=== PATIENT | male | born 1940 | race Caucasian/White ===

== ENCOUNTER 2021-02-22 18:19 | Inpatient (IN) | payer MEDICARE, BC ==
[~2021-02-22] VITALS: Ht 152.4 cm; Wt 79.8 kg
--- NOTE | 2021-02-22 19:45 | NUR ---
Medically cleared by ERMD.
--- NOTE | 2021-02-22 20:30 | NUR ---
Transfered to U via gunry by EMT.
[2021-02-22 20:52] VITALS: BP 121/80
[2021-02-22] MEDS ORDERED: BLOOD SUGAR DIAGNOSTIC 1 EACH STRIP VI ONE (22:15)
[2021-02-22] MEDS ORDERED: TEMAZEPAM 7.5 MG CAPSULE PO PRN (22:15)
[2021-02-22] MEDS ORDERED: MAGNESIUM HYDROXIDE 30 ML LIQUID UDC PO PRN (22:15)
[2021-02-22] MEDS ORDERED: MAG HYDROX/AL HYDROX/SIMETH 30 ML LIQUID UDC PO PRN (22:15)
[2021-02-22] MEDS ORDERED: ACETAMINOPHEN 325 MG TABLET PO PRN (22:15)
[2021-02-22] MEDS ORDERED: LOSA1TAB36 PO (22:26)
[2021-02-22] MEDS ORDERED: ROSU20TA2 PO (22:26)
[2021-02-22] MEDS ORDERED: ESCI-9 PO (22:26)
[2021-02-22] MEDS ORDERED: FINA5TAB11 PO (22:26)
[2021-02-22] MEDS ORDERED: ALPR0.5T8 PO (22:26)
[2021-02-22] MEDS ORDERED: DOXA4TAB3 PO (22:26)
[2021-02-22] MEDS ORDERED: LEVO175T2 PO (22:26)
[2021-02-22] MEDS ORDERED: ZOLP5TAB8 PO (22:26)
--- NOTE | 2021-02-22 23:00 | NUR ---
ADMISSION NOTE: 81 YRS OLD MALE WHO LIVES WITH HIS [facility] BY THE AMBULANCE .PT WAS ADMITTED TO [facility] AFTER MEDICALLY CLEARED FROM ER.PT ARRIVED TO THE UNIT VIA GURNEY,ACCOMPANIED BY AMBULANCE STAFFS.PT IS A/O X3,CALM , COOPERATIVE,SOFT SPOKEN AND FORGETFUL @ TIMES.ON 72 HR HOLD FOR DTS BUT DENIED @ THE TIME OF ADMISSION. PT HAS HX.OF HTN,DEPRESSION,BPH,ACUTE PROSTATITIS AND HYPOTHYROIDISM. NO HX.OF FALL.SELF CARE,BRP AND AMBULATORY.DENIES PAIN/SI/HI/A&V H BUT ACCORDING TO THE HOLD,PT STRUGGLES WITH SEVERE DEPRESSION.HE ADVISED HIS THAT HE WANTED TO KILL HIMSELF WITH A GUN HE OWNED. CALLED 911. CALLED TO PROVIDE MORE INFORMATION THEN TALKED TO PT. WILL CONTINUE TO MONITOR VERY CLOSELY FOR S/I.
[2021-02-23 07:30] VITALS: BP 115/63
--- NOTE | 2021-02-23 11:52 | NUR ---
Firearms Report: Senior Customer Service Representative completed and submitted a [employer] firearms report for 5150 grave disability certifications. A copy of report has been placed in patient chart.
--- NOTE | 2021-02-23 12:42 | NUR ---
DAVIDE Initial Discharge Plan: Patient resides at home [address] [place] [address]. Patient's , Romelia Garcia ([phone]) and son Macho Garcia ([phone]) are both involved in the patient's care. Patient would like to return home upon discharge. DAVIDE will continue to work with patient, family, and MD to ensure a safe and proper discharge plan.
--- NOTE | 2021-02-23 12:43 | NUR ---
SW Family Contact: SW met with patient's , Romelia Garcia ([phone]) and son Macho Garcia ([phone]) who are both involved in the patient's care. SW discussed treatment and discharge plan. Macho and Romelia stated they will knot picker cloth the patient and take him home upon discharge.
--- NOTE | 2021-02-23 12:44 | NUR ---
Brief Substance Abuse Intervention: Patient was provided with a brief substance abuse intervention and referred to [facility] [address], [place] [address] ([phone]); [facility] [address], [address], [place] [address] ([phone]); [facility] ([phone]); [facility] ([phone]); [facility] ([phone]); and National Suicide Prevention [facility] ([phone]).
--- NOTE | 2021-02-23 13:51 | NUR ---
SW NOTE Removal of Firearms: Per patient's chart and 5150 hold, officer Fransisco #[id number] from [facility] ([phone]) all firearms have been removed from the patient's home and have been confiscated.
--- NOTE | 2021-02-23 15:13 | NUR ---
patient is alert and oriented x2 pacing in hallway, denies any pain or discomfort at all time.visited by family all valuables belonging returned to .complaint with all medication,encouraged to attend group activity ,will continue close monitoring.
[2021-02-23] MEDS ORDERED: Medication Not On Formulary EA (Losartan/Hydrochlorothiazide (Losartan-Hctz 50-12.5 Mg T PO SCH (15:30)
[2021-02-23 15:51] VITALS: BP 120/67
[2021-02-23] MEDS: LEVOTHYROXINE SODIUM 175 MCG TABLET PO SCH (16:00)
[2021-02-23] MEDS: HYDROCHLOROTHIAZIDE 12.5 MG CAPSULE PO SCH (16:00)
[2021-02-23] MEDS: FINASTERIDE 5 MG TABLET PO SCH (17:10)
[2021-02-23] MEDS: LOSARTAN POTASSIUM 50 MG TABLET PO SCH (17:10)
[2021-02-23 20:16] VITALS: BP 111/63
[2021-02-23] MEDS: ATORVASTATIN 40 MG TABLET PO SCH (21:04)
[2021-02-23] MEDS: MIRTAZAPINE 15 MG TABLET PO SCH (21:04)
[2021-02-23] MEDS: DOXAZOSIN 2 MG TABLET PO SCH (21:05)
--- NOTE | 2021-02-23 23:33 | NUR ---
PATIENT RECEIVED IN BED AWAKE, ALERT/ORIENTED X3. PATIENT COMPLAINT WITH MEDICATION. PATIENT DENIES SI/HI.SAFE ENVIRONMENT PROVIDE, FREQUENT ROUNDING BED IN LOWEST POSITION, BED LOCKED, AND BED ALARM ON WHILE IN BED.
[2021-02-24] MEDS: LEVOTHYROXINE SODIUM 175 MCG TABLET PO SCH (06:47)
[2021-02-24 07:30] VITALS: BP 112/64
[2021-02-24 08:21] LABS: HEMATOCRIT 41.1 % (36.7-47.1); MEAN CORPUSCULAR HEMOGLOBIN 32.6 uug (23.8-33.4); MEAN CORPUSCULAR VOLUME 97.1 fL (73.0-96.2); PLATELET COUNT (AUTO) 234 K/uL (152-348)
[2021-02-24] MEDS: LOSARTAN POTASSIUM 50 MG TABLET PO SCH (08:36)
[2021-02-24] MEDS: FLUOXETINE HCL 10 MG CAPSULE PO SCH (08:36)
[2021-02-24] MEDS: FINASTERIDE 5 MG TABLET PO SCH (08:36)
[2021-02-24] MEDS: HYDROCHLOROTHIAZIDE 12.5 MG CAPSULE PO SCH (08:37)
[2021-02-24 08:40] LABS: CREATININE 0.8 mg/dL (0.6-1.3); MAGNESIUM 2.6 mg/dL (1.8-2.4); PHOSPHOROUS 2.7 mg/dL (2.5-4.9); POTASSIUM 4.1 mmol/L (3.5-5.1)
[2021-02-24 08:52] LABS: THYROID STIMULATING HORMONE 0.031 mIU/mL (0.358-3.740)
--- NOTE | 2021-02-24 12:19 | NUR ---
SW Family Contact: SW spoke with patient's , Romelia Garcia [phone]), son Macho Garcia ([phone]), and son Alejandro Garcia ([phone]) who are all involved in the patient's care. SW discussed updated treatment plan and medication changes.
[2021-02-24 16:00] VITALS: BP 92/51
[2021-02-24] MEDS: ATORVASTATIN 40 MG TABLET PO SCH (20:14)
[2021-02-24] MEDS: DOXAZOSIN 2 MG TABLET PO SCH (20:14)
[2021-02-24] MEDS: MIRTAZAPINE 15 MG TABLET PO SCH (20:14)
[2021-02-24 20:20] VITALS: BP 96/58
[2021-02-25] MEDS: LEVOTHYROXINE SODIUM 175 MCG TABLET PO SCH (06:14)
[2021-02-25 07:30] VITALS: BP 95/58
[2021-02-25] MEDS: LOSARTAN POTASSIUM 50 MG TABLET PO SCH (09:00)
[2021-02-25] MEDS: HYDROCHLOROTHIAZIDE 12.5 MG CAPSULE PO SCH (09:00)
[2021-02-25] MEDS: FINASTERIDE 5 MG TABLET PO SCH (09:19)
[2021-02-25] MEDS: FLUOXETINE HCL 10 MG CAPSULE PO SCH (09:19)
[2021-02-25 14:03] LABS: *BILIRUBIN,URIN NEGATIVE (NEGATIVE); *BLOOD, URINE NEGATIVE (NEGATIVE); *CLARITY,URINE CLEAR (CLEAR); *COLOR,URINE YELLOW (YELLOW); *KETONES,URINE NEGATIVE (NEGATIVE); *UROBILINOGEN,URINE 0.2 E.U./dl (NORMAL); LEUKOCYTE ESTERASE ,URINE TRACE (NEGATIVE); NITRITE, URINE NEGATIVE (NEGATIVE); UGLUCOSE NEGATIVE (NEGATIVE)
[2021-02-25 14:32] LABS: BACTERIA,URINE FEW /HPF (NONE SEEN); RBC,URINE 0-3 /HPF (0-3)
[2021-02-25 14:33] LABS: SQUAMOUS EPITHELIAL CELL,UR FEW /HPF (NONE SEEN); URINE AMORPHOUS URATE FEW /HPF
[2021-02-25 16:01] VITALS: BP 118/70
[2021-02-25] MEDS: LORAZEPAM 0.5 MG TABLET PO PRN (18:16)
[2021-02-25 20:00] VITALS: BP 122/73
[2021-02-25] MEDS: MIRTAZAPINE 15 MG TABLET PO SCH (20:11)
[2021-02-25] MEDS: ATORVASTATIN 40 MG TABLET PO SCH (20:12)
[2021-02-25] MEDS: DOXAZOSIN 2 MG TABLET PO SCH (20:22)
[2021-02-26] MEDS: LEVOTHYROXINE SODIUM 150 MCG TABLET PO SCH (06:21)
[2021-02-26] MEDS ORDERED: LEVOTHYROXINE SODIUM 175 MCG TABLET PO SCH (07:00)
[2021-02-26 07:30] VITALS: BP 113/62
[2021-02-26] MEDS: HYDROCHLOROTHIAZIDE 12.5 MG CAPSULE PO SCH (08:46)
[2021-02-26] MEDS: FINASTERIDE 5 MG TABLET PO SCH (08:46)
[2021-02-26] MEDS: FLUOXETINE HCL 20 MG CAPSULE PO SCH (08:48)
[2021-02-26] MEDS: LOSARTAN POTASSIUM 50 MG TABLET PO SCH (08:50)
--- NOTE | 2021-02-26 09:29 | NUR ---
DAVIDE Family Contact: DAVIDE spoke with patient's son Macho Garcia ([phone]) and discussed in dept discharge planning such as SNF, Assisted Living, or Home.
--- NOTE | 2021-02-26 12:01 | NUR ---
Court Hearing: Patient's court hearing for 5250 is today and it was upheld for GD.
[2021-02-26 17:32] VITALS: BP 150/98
[2021-02-26 20:02] VITALS: BP 102/56
[2021-02-26] MEDS: MIRTAZAPINE 15 MG TABLET PO SCH (20:14)
[2021-02-26] MEDS: ATORVASTATIN 40 MG TABLET PO SCH (20:14)
[2021-02-26] MEDS: DOXAZOSIN 2 MG TABLET PO SCH (20:21)
--- NOTE | 2021-02-27 06:42 | NUR ---
GPS: Remain calm and cooperative. Denies any pain or discomfort at this time. complaint with all medication, slept 7.45 hrs through the night. resting in bed comfortably.will continue close monitoring
[2021-02-27] MEDS: LEVOTHYROXINE SODIUM 150 MCG TABLET PO SCH (06:53)
[2021-02-27 07:51] VITALS: BP 115/60
[2021-02-27] MEDS: FINASTERIDE 5 MG TABLET PO SCH (08:27)
[2021-02-27] MEDS: HYDROCHLOROTHIAZIDE 12.5 MG CAPSULE PO SCH (08:27)
[2021-02-27] MEDS: FLUOXETINE HCL 20 MG CAPSULE PO SCH (08:27)
[2021-02-27] MEDS: LOSARTAN POTASSIUM 50 MG TABLET PO SCH (08:28)
[2021-02-27] MEDS: CEphaleXIN 500 MG CAPSULE PO SCH ×2 (11:56→16:45)
[2021-02-27 17:01] VITALS: BP 99/56
[2021-02-27] MEDS: LORAZEPAM 0.5 MG TABLET PO PRN (19:56)
[2021-02-27] MEDS: ATORVASTATIN 40 MG TABLET PO SCH (20:01)
[2021-02-27] MEDS: DOXAZOSIN 2 MG TABLET PO SCH (20:01)
[2021-02-27] MEDS: MIRTAZAPINE 15 MG TABLET PO SCH (20:02)
[2021-02-27 20:03] VITALS: BP 100/50
[2021-02-28] MEDS: LEVOTHYROXINE SODIUM 150 MCG TABLET PO SCH (06:17)
[2021-02-28 08:16] VITALS: BP 111/62
[2021-02-28] MEDS: FINASTERIDE 5 MG TABLET PO SCH (08:35)
[2021-02-28] MEDS: FLUOXETINE HCL 20 MG CAPSULE PO SCH (08:35)
[2021-02-28] MEDS: HYDROCHLOROTHIAZIDE 12.5 MG CAPSULE PO SCH (08:35)
[2021-02-28] MEDS: risperiDONE 0.5 MG TABLET PO SCH ×2 (08:36→21:25)
[2021-02-28] MEDS: LOSARTAN POTASSIUM 50 MG TABLET PO SCH (08:36)
[2021-02-28] MEDS: CEphaleXIN 500 MG CAPSULE PO SCH ×2 (08:36→16:46)
[2021-02-28] MEDS ORDERED: risperiDONE 0.5 MG TABLET PO SCH (09:00)
[2021-02-28 16:20] VITALS: BP 123/68
[2021-02-28 19:53] VITALS: BP 116/66
[2021-02-28] MEDS: ATORVASTATIN 40 MG TABLET PO SCH (21:25)
[2021-02-28] MEDS: MIRTAZAPINE 15 MG TABLET PO SCH (21:25)
[2021-02-28] MEDS: DOXAZOSIN 2 MG TABLET PO SCH (21:27)
[2021-03-01] MEDS: LEVOTHYROXINE SODIUM 150 MCG TABLET PO SCH (06:00)
[2021-03-01 07:30] VITALS: BP 97/56
[2021-03-01] MEDS: HYDROCHLOROTHIAZIDE 12.5 MG CAPSULE PO SCH ×2 (08:24→08:31)
[2021-03-01] MEDS: CEphaleXIN 500 MG CAPSULE PO SCH ×2 (08:24→16:42)
[2021-03-01] MEDS: risperiDONE 0.5 MG TABLET PO SCH ×2 (08:24→20:19)
[2021-03-01] MEDS: FLUOXETINE HCL 20 MG CAPSULE PO SCH (08:24)
[2021-03-01] MEDS: FINASTERIDE 5 MG TABLET PO SCH (08:24)
[2021-03-01] MEDS: LOSARTAN POTASSIUM 50 MG TABLET PO SCH (08:25)
--- NOTE | 2021-03-01 09:04 | NUR ---
DAVIDE SNF Referral: SW faxed patient's referral packet to: [facility] ( ) attention to Jessica. [facility] ( ) attention to Ruth. [facility] ( ) attention to
--- NOTE | 2021-03-01 11:39 | NUR ---
SNF Referral: [facility] ( ) attention to Jessica; Accepted patient. [facility] ( ) attention to Debbie; Unable to accept. [facility] ( ) attention to Wendy; Unable to accept.
--- NOTE | 2021-03-01 14:26 | NUR ---
DAVIDE Family Contact: DAVIDE met with patient's , Romelia Garcia ([phone]), son Macho Garcia ([phone]), and son Alejandro Garcia ([phone]). SW discussed treatment and discharge planning options such as [facility] and informed of the other facilities denial. Per family request, Davide spoke with Patricia from [facility] ([phone]) who stated they are an inpatient, [facility] mental health treatment program.
[2021-03-01 15:26] VITALS: BP 95/45
[2021-03-01] MEDS: FLUOXETINE HCL 10 MG CAPSULE PO SCH (16:57)
[2021-03-01] MEDS: DOXAZOSIN 2 MG TABLET PO SCH (20:19)
[2021-03-01] MEDS: ATORVASTATIN 40 MG TABLET PO SCH (20:19)
[2021-03-01] MEDS: MIRTAZAPINE 15 MG TABLET PO SCH (20:19)
[2021-03-02] MEDS: LEVOTHYROXINE SODIUM 150 MCG TABLET PO SCH (06:57)
[2021-03-02 07:30] VITALS: BP 105/55
[2021-03-02] MEDS: CEphaleXIN 500 MG CAPSULE PO SCH ×2 (08:47→16:34)
[2021-03-02] MEDS: LOSARTAN POTASSIUM 50 MG TABLET PO SCH (08:47)
[2021-03-02] MEDS: FLUOXETINE HCL 20 MG CAPSULE PO SCH (08:47)
[2021-03-02] MEDS: FINASTERIDE 5 MG TABLET PO SCH (08:47)
[2021-03-02] MEDS: risperiDONE 0.5 MG TABLET PO SCH ×2 (08:47→21:09)
[2021-03-02] MEDS: HYDROCHLOROTHIAZIDE 12.5 MG CAPSULE PO SCH (08:48)
[2021-03-02] MEDS: FLUOXETINE HCL 10 MG CAPSULE PO SCH (12:17)
[2021-03-02 15:31] VITALS: BP 99/47
--- NOTE | 2021-03-02 20:00 | NUR ---
RECEIVED PATIENT IN HIS ROOM SITTING IN HIS BED. HE IS NOTED AWAKE A/O X 3 ABLE TO AMBULATE WITH STEADY GAIT AND ABLE TO VERBALIZED FEELINGS. PATIENT NOTED WITH LOW MOOD, BLUNTED AFFECT, AND WITHDRAWN. UPON INTERVIEW, PATIENT STATED THAT HE FEELS DEPRESSED AND THAT HE DOES NOT KNOW WHY. HOWEVER, HE DENIED SI/HI/VH/AH HE IS ABLE TO VERBALLY CFS. DENIAL IS CONVINCING. PATIENT IS REASSURED FOR HER SAFETY. V/S STABLE, HE WAS GIVEN PO FLUIDS AND SNACKS. SAFTY AND FALL PRECAUTION IN PLACE. WILL CONTINUE TO MONITOR.
[2021-03-02 20:08] VITALS: BP 101/52
[2021-03-02] MEDS: DOXAZOSIN 2 MG TABLET PO SCH (21:00)
[2021-03-02] MEDS: ATORVASTATIN 40 MG TABLET PO SCH (21:09)
[2021-03-02] MEDS: MIRTAZAPINE 15 MG TABLET PO SCH (21:09)
[2021-03-03] MEDS: LEVOTHYROXINE SODIUM 150 MCG TABLET PO SCH (07:21)
[2021-03-03 07:30] VITALS: BP 100/68
[2021-03-03] MEDS: CEphaleXIN 500 MG CAPSULE PO SCH ×2 (08:27→16:27)
[2021-03-03] MEDS: risperiDONE 0.5 MG TABLET PO SCH ×2 (08:28→21:26)
[2021-03-03] MEDS: FLUOXETINE HCL 20 MG CAPSULE PO SCH (08:28)
[2021-03-03] MEDS: FINASTERIDE 5 MG TABLET PO SCH (08:28)
[2021-03-03] MEDS: LOSARTAN POTASSIUM 50 MG TABLET PO SCH (08:29)
[2021-03-03] MEDS: HYDROCHLOROTHIAZIDE 12.5 MG CAPSULE PO SCH (08:30)
--- NOTE | 2021-03-03 09:20 | NUR ---
DAVIDE Family Contact: DAVIDE met with patient's son Macho Garcia ([phone]) who stated [facility] after they toured the facility.
--- NOTE | 2021-03-03 12:03 | NUR ---
SW Family Contact: SW met with patient's , Romelia Garcia ([phone]), son Macho Garcia ([phone]), and discussed discharge plan for Monday. Both are agreeable with this plan.
[2021-03-03] MEDS: FLUOXETINE HCL 10 MG CAPSULE PO SCH (13:09)
[2021-03-03 16:18] VITALS: BP 126/70
--- NOTE | 2021-03-03 18:41 | NUR ---
The patient remained calm during the shift. Compliant with his medications. Denies any pain. No distress identified. Denies SI. Safety measures maintained. All needs attended. Will continue to monitor.
[2021-03-03] MEDS: DOXAZOSIN 2 MG TABLET PO SCH (21:00)
[2021-03-03 21:28] VITALS: BP 108/63
[2021-03-03] MEDS: ATORVASTATIN 40 MG TABLET PO SCH (21:28)
[2021-03-03] MEDS: MIRTAZAPINE 15 MG TABLET PO SCH (21:30)
[2021-03-04 07:30] VITALS: BP 123/60
[2021-03-04] MEDS: LEVOTHYROXINE SODIUM 150 MCG TABLET PO SCH (07:54)
[2021-03-04] MEDS: HYDROCHLOROTHIAZIDE 12.5 MG CAPSULE PO SCH (08:37)
[2021-03-04] MEDS: CEphaleXIN 500 MG CAPSULE PO SCH ×2 (08:37→17:35)
[2021-03-04] MEDS: FLUOXETINE HCL 20 MG CAPSULE PO SCH (08:37)
[2021-03-04] MEDS: FINASTERIDE 5 MG TABLET PO SCH (08:37)
[2021-03-04] MEDS: LOSARTAN POTASSIUM 50 MG TABLET PO SCH (08:37)
[2021-03-04] MEDS: risperiDONE 0.5 MG TABLET PO SCH ×2 (08:37→20:47)
[2021-03-04] MEDS: FLUOXETINE HCL 10 MG CAPSULE PO SCH (14:21)
[2021-03-04 16:00] VITALS: BP 111/58
--- NOTE | 2021-03-04 17:17 | NUR ---
Gps/Compensation Director- Nasal swabbed for covid antigen obrained and sent to lab.
[2021-03-04 20:00] VITALS: BP 121/53
[2021-03-04] MEDS: MIRTAZAPINE 15 MG TABLET PO SCH (20:47)
[2021-03-04] MEDS: ATORVASTATIN 40 MG TABLET PO SCH (20:47)
[2021-03-04] MEDS: DOXAZOSIN 2 MG TABLET PO SCH (20:57)
[2021-03-05] MEDS: LEVOTHYROXINE SODIUM 150 MCG TABLET PO SCH (06:29)
[2021-03-05 07:30] VITALS: BP 116/63
--- NOTE | 2021-03-05 08:06 | NUR ---
SW Discharge Note: Patient will be discharged to [facility] [address] [place] [address] ([phone]). Patient will be provided Ambulance transportation at 1PM. Spoke with Essie, Admin Coordinator at the facility who states they are ready to accept the patient today. Patient is aware and agreeable with discharge plans. Patient is alert and oriented x4, is unable to plan for self-care at this time, however, is willing to accept care at [facility]. Patient denies any suicidal or homicidal ideation. Patient will follow-up at the facility with Dr. Love Psychiatrist and Dr. Hernandez [employer]. Patient presents with calm mood and congruent affect. Patient's , Romelia Garcia ([phone]), son Macho Garcia ([phone]), and son Alejandro Garcia are all aware and agreeable with discharge plan.
[2021-03-05 08:34] VITALS: BP 116/63
[2021-03-05] MEDS: FLUOXETINE HCL 20 MG CAPSULE PO SCH (08:34)
[2021-03-05] MEDS: risperiDONE 0.5 MG TABLET PO SCH (08:34)
[2021-03-05] MEDS: LOSARTAN POTASSIUM 50 MG TABLET PO SCH (08:34)
[2021-03-05] MEDS: FINASTERIDE 5 MG TABLET PO SCH (08:34)
[2021-03-05] MEDS: HYDROCHLOROTHIAZIDE 12.5 MG CAPSULE PO SCH (08:34)
[2021-03-05] MEDS: FLUOXETINE HCL 10 MG CAPSULE PO SCH (12:23)
--- NOTE | 2021-03-05 12:30 | NUR ---
Gps/Captain Waiter- Called [facility], report was given to Radha Rn Spool Carrier .Informed of the brass pickler time at 1430. Patient was also well informed.
--- NOTE | 2021-03-05 15:05 | NUR ---
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 All belongings ggiven back to patient, denies any pain no discomfort. Discharged in good spirit, with no cmplaints noted.
== END 2021-03-05 15:00 | DRG 885 ==
LOC: ER 18:34 → GPS 20:25
PROVIDERS: ADMIT Psychiatry & Neurology Psychosomatic Medicine; ATTEND Student in an Organized Health Care Education/Training Program
DX: F33.3 Major depressive disorder, recurrent, severe with psychotic symptoms (principal); F01.50 Vascular dementia, unspecified severity, without behavioral disturbance, psychotic disturbance, mood disturbance, and anxiety; N39.0 Urinary tract infection, site not specified; I10 Essential (primary) hypertension; E03.9 Hypothyroidism, unspecified; E78.5 Hyperlipidemia, unspecified; Z20.822 Contact with and (suspected) exposure to COVID-19; G47.00 Insomnia, unspecified; N40.1 Benign prostatic hyperplasia with lower urinary tract symptoms
CPT/HCPCS: 36415; 70450; 83735; 84100; 84443; 85025; 87077; 87086; 93005; A4663